=== PATIENT | male | born 1965 | race Caucasian/White ===

== ENCOUNTER 2022-03-17 09:11 | Emergency (ER) | payer OTHER, BC ==
[~2022-03-17] VITALS: Ht 170.2 cm; Wt 88.6 kg
[2022-03-17] MEDS ORDERED: FLEXERIL 1010 MG/TAB PO (10:46)
[2022-03-17 11:25] VITALS: BP 179/101; PULSE 56; TEMP 98
== END 2022-03-17 11:25 | disposition home or self-care (01) ==
LOC: COL.ER 09:11
DX: S06.0X0A Concussion without loss of consciousness, initial encounter (principal); S16.1XXA Strain of muscle, fascia and tendon at neck level, initial encounter; S01.311A Laceration without foreign body of right ear, initial encounter; S80.01XA Contusion of right knee, initial encounter; Z98.890 Other specified postprocedural states; W10.9XXA Fall (on) (from) unspecified stairs and steps, initial encounter; Y93.01 Activity, walking, marching and hiking; Y92.39 Other specified sports and athletic area as the place of occurrence of the external cause; Y99.0 Civilian activity done for income or pay
CPT/HCPCS: L1830; L1846